=== PATIENT | female | born 1970 | race Caucasian/White ===

== ENCOUNTER 2017-11-23 13:21 | Outpatient (CLI) | payer BC ==
--- NOTE | 2017-11-23 14:32 | MMO ---
BILATERAL MAMMOGRAMS: DATE: 11/23/17 HISTORY: Screening mammography. COMPARISON: None. FINDINGS: Baseline study. Scattered fibroglandular densities. No dominant mass or suspicious calcifications. The study was evaluated with the assistance of computer-aided detection. IMPRESSION: BIRADS 1: Negative Suggest routine follow-up. POS: [facility]
== END 2017-11-23 13:22 | disposition home or self-care (01) ==
LOC: SCSMAMMO 13:21
PROVIDERS: ATTEND Obstetrics & Gynecology
DX: Z12.31 Encounter for screening mammogram for malignant neoplasm of breast (principal)
CPT/HCPCS: 77067

== ENCOUNTER 2018-04-11 18:19 | Emergency (ER) | payer BC ==
[2018-04-11] MEDS ORDERED: Fluorescein Opthalmic Strip ONE (18:50)
== END 2018-04-11 19:17 | disposition home or self-care (01) ==
LOC: SCSER 18:19
DX: S05.02XA Injury of conjunctiva and corneal abrasion without foreign body, left eye, initial encounter (principal); W22.8XXA Striking against or struck by other objects, initial encounter
CPT/HCPCS: 99283